=== PATIENT | male | born 1940 | race Caucasian/White ===

== ENCOUNTER → 2016-04-19 | Outpatient (CLI) | payer OTHER ==
--- NOTE | 2016-04-19 08:23 | KCIC ---
PROCEDURE Orbit radiographs HISTORY Pre MRI screening, history of metal to eyes COMPARISON None FINDINGS Two views of the orbits are submitted. No metallic radiopaque foreign body is identified in the region of the orbits. IMPRESSION 1. There is no metallic foreign body in the region of the orbits. Electronically signed by: Haile Ramirez MD (Apr 19, 2016 08:21:47)
--- NOTE | 2016-04-19 08:37 | KCIC ---
PROCEDURE MRI lumbar spine without contrast. HISTORY Arthritis of the lumbar spine, right lower extremity pain, chronic back pain TECHNIQUE Multiplanar, multi sequential non contrast MR imaging was performed of the lumbar spine. COMPARISON None FINDINGS Vertebral body stature is maintained. There is grade 1 approaching grade 2 anterior spondylolisthesis at L5-S1 on the order of 11 millimeters. There is bilateral L5 spondylolysis. There is fairly advanced degenerative disc disease L5-S1, mild to moderate degenerative disc disease L3-4 and L4-5, and mild disc desiccation L2-3. There are posterior annular tears L2-3 to L5-S1. Conus terminates normally at L1. There is edema of the right L4 and L5 pedicles with extent to the facet articular processes. There is very mild lumbar levoscoliosis. Barely included, there is a large focus of T1 and T2 hyperintense STIR signal of the visualized right iliac bone, hemangioma favored. Not fully included, there is likely slightly dilated infrarenal abdominal aorta on the order of 3 centimeters. L1-L2: Spinal canal and neural foramina are adequate. L2-3: There is negligible disc osteophyte complex and bulge. There is minimal narrowing of the left neural foramen, right neural foramen adequate. Spinal canal is adequate. L3-4: There is mild buckling of the ligamentum flavum and facet hypertrophic change. There is minimal disc osteophyte complex and broad posterior bulge. There is minimal narrowing of the far lateral recesses bilaterally greater on the right. There is mild inferior neural foramina compromise bilaterally. L4-5: There is moderate facet hypertrophic change. There is negligible bulge. Spinal canal is adequate. There is mild to moderate neural foramina compromise bilaterally somewhat greater on the right. L5-S1: There is fairly severe facet hypertrophic change. There is partial uncovering of the posterior aspect of the disc due to spondylolisthesis. Spinal canal is adequate. There is moderate to severe left greater than right neural foramina compromise bilaterally. IMPRESSION 1. There is grade 1, approaching grade 2 anterior spondylolisthesis at L5-S1 due to bilateral L5 spondylolysis. 2. There is bilateral L5-S1 neural foramina compromise, to a lesser degree bilaterally at L4-5. 3. There is no significant lumbar spinal stenosis, mild narrowing of the far lateral recesses bilaterally at L3-4. 4. There is advanced degenerative disc disease L5-S1, to a lesser degree at L4-5 and L3-4. 5. There is edema of the right L4 and L5 pedicles with extent to the facet articular processes. Findings are more likely to be reactive/degenerative in etiology. 6. Not fully included, there is likely slightly dilated infrarenal abdominal aorta on the order of 3 centimeters. Electronically signed by: Haile Ramirez MD (Apr 19, 2016 08:35:12)
== END | disposition home or self-care (01) ==
LOC: KCIC MRI 07:43
PROVIDERS: ATTEND Nurse Practitioner Gerontology
DX: M13.88 Other specified arthritis, other site (principal); M79.604 Pain in right leg
CPT/HCPCS: 70030; 72148

== ENCOUNTER → 2016-05-09 | Outpatient (CLI) | payer OTHER ==
[~2016-05-09] MED LIST: ALLO300T PO; ASPI-482 PO; ATOR40TA59 PO; CALC-77 PO; LOSA50TA6 PO; LUTE20CA2 PO; METF10002 PO; MULT1TAB52 PO; OMEG1CAP6 PO
--- NOTE | 2016-05-09 17:15 | PAIN ---
DATE OF SERVICE: 05/09/2016 INITIAL CONSULTATION FOR PAIN CLINIC CHIEF COMPLAINT: Low back and right lower extremity pain. HISTORY OF PRESENT ILLNESS: This is a 76-year-old male who presents with history of pain in the low back and right leg for about 2 years, had a hip replaced about 2-1/2 years ago and was having some pain in the back before that as well, but during the rehabilitation period was having some pain in the low back across the low back into the right leg and into the anterior thigh, medial lower leg and lateral lower leg as well as the posterior hip and the back. The patient reports that he did better after the surgery, but then the pain began to return now for the past year or so. It has been much worse over the past several months. The patient reports it is constant, aching pain, it is throbbing, radiating to the right leg with aching quality as well in to the low back radiating into the anterior lateral and medial thigh, medial lower leg and lateral posterior lower leg to the ankle with some significant fatigability in the right leg with walking and standing. The patient reports left leg feels normal and the right leg does not keep up with it. The patient reports it awakens him from sleep at least once or twice at night with pain radiating down his right leg. Does not affect his bowel or bladder control, but does affect his ability to walk, but he is not using any assistive devices. The patient has had physical therapy as recently as 01/2016. Also, counseling, chiropractic treatment, which is ongoing and exercising, which is ongoing, he is still doing the stretches and strengthening exercises both his chiropractor and physical therapist have given him and he does these daily. The patient is trying to walk as much as he can as well. He generally enjoys this, but it has been limiting him significantly. The patient reports his disability rating from 0 to 10, 10 being the worst, it is 7 with family and home responsibilities, 8 with recreation, 4 with social activity, 5 with occupation and sexual behavior, 3 with self care and 6 with life support activities especially sleeping. The patient has been taking ibuprofen, which helps about 10-20% but that is all. The patient did have MRI scan of the lumbar spine dated 04/19/2016, showing significant L5-S1 anterior spondylolisthesis and spondylosis, bilateral L5-S1 neural foraminal compromise, lesser degree at L4-L5. There is advanced degenerative disk disease at L5-S1 and to lesser degree at L4-L5 and L3-L4, edema of the right L4 and L5 pedicles ____ process. PAST MEDICAL HISTORY: Significant for arthritis, diabetes type 2, hearing loss, hypertension, hypercholesterolemia. PREVIOUS SURGERY: Include right total hip replacement in December 2013, left ankle fracture in the past, detached retina on the right in the past and right cataract extraction with lens replacement. CURRENT MEDICATIONS: Include fish oil, calcium, Lutein, multivitamins, daily baby aspirin, metformin, atorvastatin, allopurinol, and losartan. ALLERGIES: THE PATIENT IS ALLERGIC TO AMOXICILLIN. FAMILY HISTORY: Significant for diabetes, also heart disease, emphysema, aneurysms. SOCIAL HISTORY: The patient drinks 1 alcoholic drink about 3 times a month on average, does not smoke. He is , lives with his spouse and lives locally in [place], [place]. 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 REVIEW OF SYSTEMS: The patient's review of systems is positive for those items mentioned in history of present illness. All systems reviewed and otherwise negative. It is complete, full and well documented on the patient's chart. PHYSICAL EXAMINATION: VITAL SIGNS: Today, the patient's blood pressure 147/96, pulse 91, respirations 16, temperature is 98.2 degrees Fahrenheit, height is 5 feet 11 and half inches, weight is 207 pounds. GENERAL: The patient is awake, alert, oriented, appropriate, very pleasant demeanor. HEENT: Head shows normocephalic, atraumatic. Extraocular movements are intact, symmetrical. Oral cavity, mucous membranes are moist and pink. Dentition is intact. NECK: Shows anterior throat supple without palpable lymphadenopathy noted. Swallow reflex is symmetrical. CHEST: Shows normal on inspection. Breath sounds clear to auscultation bilaterally. HEART: Shows S1 and S2 clear. No murmurs auscultated. ABDOMEN: Soft, nontender, nondistended. No palpable organomegaly noted. No rebound or guarding demonstrated. BACK: Shows spine grossly midline. Normal appearing thoracic kyphosis and lumbar lordotic curvature. No previous bruises, lesions, rashes or scars are noted. The patient's lumbar paraspinous musculature is firm throughout the upper, middle and lower distribution with some moderate tenderness in the low lumbar distribution, more on the right than the left with palpation, but without radiation or trigger points. The patient shows good rotation and motion of the lumbar spine, both laterally as well as extension and flexion without difficulty. No tenderness over the sacrum and sacroiliac regions over the spinous processes with palpation. LOWER EXTREMITIES: Showed deep tendon reflexes at 2+ in the patellar, 1+ tendo calcaneus tendons. Motor exam is strong with 5/5 dorsiflexion, extension, quadriceps and hamstring flexion. The patient's straight leg raise is mildly positive on the right at about 40-45 degrees with pain radiating into the lateral and medial thigh as well as the posterior lower leg. This is decreased with knee flexion. Left side is negative. Gaenslen's and Berny's maneuvers are negative bilaterally. Peripheral pulses are 2+ in the posterior tibial distribution bilaterally with no edema noted bilaterally. The patient is able to stand, stand on his toes without significant difficulty or loss of balance, walks with a slight limping gait, appears to favor the right lower extremity, even on a short walk in the office, but not using any assistive devices, canes or walkers. IMPRESSION: 1. This is a 76-year-old male with approximate 2 year history of increasing low back pain and now radicular pain in the right lower extremity as described significantly over the past few months despite physical therapy and chiropractic treatments and daily exercise. 2. Hypertension. 3. Arthritis. PLAN: Options were discussed with the patient including conservative medical management, physical therapy continuation and interventional technique. He would like to pursue interventional techniques. We discussed a lumbar epidural steroid injection using description as well as anatomical model to describe the procedure. We will wait for preauthorization from patient's insurance provider by his wish and proceed at that time. In the meantime, we will try Medrol Dosepak. The patient was given instruction as well as side effects to be aware with medication. Also discussed the patient's blood pressure and he will follow up with his primary care physician regarding this as well. He may have just been nervous today, but we will nonetheless recommend he follows up for this also. The patient will return to clinic in approximately 1 week. We will plan on lumbar epidural steroid injection at that time. KATERIN N. RAMOS, MD DR: ADAM/duke JOB#: [id number] / [id number]
== END | disposition home or self-care (01) ==
LOC: PNCL 07:42
PROVIDERS: ATTEND Anesthesiology
DX: M54.5 Low back pain (principal); M79.604 Pain in right leg
CPT/HCPCS: G0463

== ENCOUNTER → 2016-05-23 | Outpatient (CLI) | payer OTHER ==
[~2016-05-23] MED LIST changes: +IOHEXOL 180 MG/ML 10 ML VIAL. ONE; +methylPREDNISolone ACETATE 40 MG/ML VIAL. ONE; +methylPREDNISolone ACETATE 80 MG/ML VIAL. ONE
--- NOTE | 2016-05-23 09:46 | PN ---
DATE: 05/23/2016 PROGRESS NOTE FOR PAIN CLINIC DIAGNOSES: Lumbar radiculopathy with lumbar degenerative disk disease. HISTORY OF PRESENT ILLNESS: The patient is a 76-year-old male who returns for followup status post initial evaluation and placement for lumbar epidural steroid injection. The patient returns now with . The patient is still with significant pain in the low back and the right lower extremity as it was previously. The patient reports anywhere from 3 to 8 on a scale of 10, worse with activity, standing and walking. The patient did try Medrol Dosepak, which helped for several days, but the pain came back once it was finished. The patient reports now it is aching, radiating, alternating with dull and sharp pains. The patient has been off of his fish oil now for about 1 week as well as his baby aspirin. The patient reports no new motor or sensory deficits, no new bowel or bladder incontinence or other complaints. PHYSICAL EXAMINATION: VITAL SIGNS: The patient's blood pressure is 128/92, pulse 90, respirations are 20, temperature 97.9 degrees Fahrenheit. Height 6 feet, weight is 206 pounds. GENERAL: The patient is awake, alert, oriented, appropriate, has a very pleasant demeanor. HEENT: Head shows normocephalic, atraumatic. Extraocular movements are intact and symmetrical. The patient wears eye glasses. Oral cavity has mucous membranes moist and pink. Dentition is intact. NECK: Shows anterior throat supple without palpable lymphadenopathy noted. CHEST: Shows normal on inspection. Breath sounds are clear to auscultation bilaterally. HEART: Shows S1 and S2 clear. ABDOMEN: Soft, nontender, nondistended. No palpable organomegaly is noted. No rebound or guarding demonstrated. BACK: Shows spine grossly in the midline. Lumbar paraspinous musculature shows symmetrical in appearance with palpation. She has some [id number] tenderness in the lower lumbar distribution of the paraspinous muscles bilaterally without significant atrophy, hypertrophy or asymmetry. The patient shows good rotational motion of the lumbar spine, both laterally as well as extension and flexion without significant pain reported. EXTREMITIES: Lower extremities show deep tendon reflexes 2+, the patellar tendons 1+, tendo calcaneus tendons are equal. Motor exam is strong with 5/5 dorsiflexion, extension, quadriceps and hamstring flexion. Options were discussed with the patient and the patient's old chart was reviewed and his current medication regimen updated. Current review of systems updated today as well. We will proceed with a lumbar epidural steroid injection today with fluoroscopic guidance. Risks were again discussed including, but not limited to bleeding, infection, possibility of epidural hematoma, subsequent neurologic compromise, dural puncture, headache, spinal cord and/or nerve damage, side effects of steroid medication and poor results regarding pain control. The patient understands and wishes to proceed. The patient will return to clinic in approximately 2 weeks for followup. He was counseled on return appointment, activity level and side effects to be aware of. DIAGNOSIS: Lumbar radiculopathy with lumbar degenerative disk disease. PROCEDURE: Lumbar epidural steroid injection in translaminar approach at L4-L5 level using C-arm fluoroscopic guidance under sterile prep and drape and using local anesthetic. Medications injected are 120 mg Depo-Medrol plus 10 mL of preservative-free normal saline and 2 mL of Isovue for contrast. CONDITION AT DISCHARGE: Stable. The patient tolerated the procedure well, had no complications. KATERIN RAMOS MD DR: ADAM/duke JOB#: [id number] / [id number]
== END | disposition home or self-care (01) ==
LOC: PNCL 07:48
PROVIDERS: ATTEND Anesthesiology
DX: M51.16 Intervertebral disc disorders with radiculopathy, lumbar region (principal)
CPT/HCPCS: 62323; J1030; J1040

== ENCOUNTER → 2016-06-07 | Outpatient (CLI) | payer OTHER ==
[~2016-06-07] MED LIST changes: -IOHEXOL 180 MG/ML 10 ML VIAL. ONE; +METF-620 PO; -METF10002 PO; -methylPREDNISolone ACETATE 40 MG/ML VIAL. ONE; -methylPREDNISolone ACETATE 80 MG/ML VIAL. ONE
--- NOTE | 2016-06-07 23:57 | PAIN ---
DATE OF SERVICE: 06/07/2016 PROGRESS NOTE FOR PAIN CLINIC DIAGNOSES: Lumbar radiculopathy with lumbar degenerative disk disease. HISTORY OF PRESENT ILLNESS: The patient is a 76-year-old male, who returns for followup status post lumbar epidural steroid injection x 1. The patient reports about 60%-70% improvement in his low back and right lower extremity, leg significantly improved about 80% and back about 60%-70% improvement. The patient reports he did very well until about 2 days ago. The pain began to return in his low back and right leg, somewhat into the right lateral and anterior thigh, right posterior lower leg medially as well as across the low back, more on the right side than the left. The patient reports it anywhere from 2 to 7 on a scale of 10, 7 worse with increased walking and standing as an aching pain is radiating into the right leg and becoming more constant over the last 2 days or so. The patient reports that before that was doing very well, was very pleased with the progress increasing his activities of daily living, sleeping much better at night. Over the past 2 days, he has had wake up a couple times during the night reposition because the pain, otherwise doing well. No new bowel or bladder incontinence, no new motor or sensory deficits or other complaints, is quite pleased with that progress, again the patient's pain beginning to return, again radiating to the right leg as it was previously, but not nearly to baseline. PHYSICAL EXAMINATION: VITAL SIGNS: Today, the patient's blood pressure is 124/84, pulse 77, respirations 18, temperature 98.2 degrees Fahrenheit and weight is 206 pounds. GENERAL: The patient is awake, alert, oriented, appropriate, very pleasant demeanor. HEENT: Head shows normocephalic, atraumatic. Extraocular movements are intact and symmetrical. Oral cavity: Mucous membranes moist and pink. Dentition is intact. NECK: Shows anterior throat supple without palpable lymphadenopathy noted. Swallow reflex is symmetrical. CHEST: Shows normal on inspection. Breath sounds clear to auscultation bilaterally. HEART: Shows S1 and S2 clear. No murmurs auscultated. ABDOMEN: Soft, nontender, nondistended. No palpable organomegaly is noted. BACK: Shows spine grossly midline. Lumbar paraspinous muscle shows some mild tenderness with palpation, but only diffusely with deep palpation bilaterally in the lower lumbar distribution. No asymmetry, no atrophy, hypertrophy, no trigger points, no difficulty with tenderness over the sacrum or the sacroiliac regions or the spinous processes. The patient shows good rotation and motion both laterally as well as extension and flexion of lumbar spine without significant difficulty or pain reported. LOWER EXTREMITIES: Show deep tendon reflexes at 2+ in the patellar tendons. Motor exam is strong with 5/5 dorsiflexion, extension, quadriceps and hamstring flexion and symmetrical. Options were discussed with the patient and the patient's old chart was reviewed as his current medication regimen updated. Current review of systems updated today as well. We will preauthorize the patient for additional lumbar epidural steroid injections did very well after the first injection, but the pain returning now is noted in the right lower extremity in a radicular pattern. The patient continues to walk encouraged him to maintain his activities ____ and still doing some stretching exercises on his own in the mornings, which he continues to do, also will have the patient return once preauthorization is obtained and plan on second lumbar epidural steroid injection at that time. KATERIN RAMOS MD DR: ADAM/duke JOB#: [id number] / [id number]
== END | disposition home or self-care (01) ==
LOC: PNCL 07:28
PROVIDERS: ATTEND Anesthesiology
DX: M51.16 Intervertebral disc disorders with radiculopathy, lumbar region (principal)
CPT/HCPCS: G0463

== ENCOUNTER → 2016-06-21 | Outpatient (CLI) | payer OTHER ==
[~2016-06-21] MED LIST changes: +IOHEXOL 180 MG/ML 10 ML VIAL. ONE; +methylPREDNISolone ACETATE 40 MG/ML VIAL. ONE; +methylPREDNISolone ACETATE 80 MG/ML VIAL. ONE
--- NOTE | 2016-06-21 13:54 | PAIN ---
DATE OF SERVICE: 06/21/2016 PROGRESS NOTE FOR PAIN CLINIC DIAGNOSES: Lumbar radiculopathy with lumbar degenerative disk disease as well. HISTORY OF PRESENT ILLNESS: This is a 76-year-old male, who returns for followup status post lumbar epidural steroid injection x 1. The patient reports only about initially 78% improvement for the first week or two, then about 60% improvement after that. The patient reports that his weaning and his pain is getting back to near baseline ____ has been about a week and half since that last visit. The patient reports still significant pain in the low back, right lower extremity, mostly in the right lateral and anterior thigh, lateral and medial lower leg and posterior lower leg. The patient reports worse with activity, standing, walking, changing positions, but no loss of motor function. No bowel or bladder incontinence or other complaints. PHYSICAL EXAMINATION: VITAL SIGNS: Today, the patient's blood pressure is 134/89, pulse 83, respirations are 18, temperature is 98.7 degrees Fahrenheit, weight is 201 pounds. GENERAL: The patient is awake, alert, oriented, appropriate, very pleasant demeanor. The patient reports the rates of his pain is a 3 on a scale of 10 currently. HEENT: Head shows normocephalic, atraumatic. Extraocular movements are intact, symmetrical. Oral cavity, mucous membranes are moist and pink. Dentition is intact. NECK: Shows anterior throat supple without palpable lymphadenopathy noted. Swallow reflex is symmetrical. CHEST: Shows normal on inspection. Breath sounds are clear to auscultation bilaterally. HEART: Shows S1 and S2 clear. ABDOMEN: Soft, nontender, nondistended. No palpable organomegaly. No rebound or guarding demonstrated. BACK: Shows spine grossly midline, slight flattening of lumbar lordotic curvature. Lumbar paraspinous musculature shows symmetrical with inspection. No atrophy, hypertrophy. No tenderness over the sacrum or sacroiliac regions the spinous processes. EXTREMITIES: The patient's lower extremities showed deep tendon reflexes at 2+ in the patellar tendons, 1+ tendo calcaneus tendons. Motor exam is strong with 5/5 dorsiflexion, extension, quadriceps and hamstring flexion and are symmetrical. Options were discussed with the patient at this time, the patient's old chart was reviewed as his current medication regimen and review of systems updated as well as medication list updated. We will plan on second lumbar epidural steroid injection today with fluoroscopic guidance. Risks were then discussed including, but not limited to bleeding, infection, possibility of epidural hematoma, subsequent neurologic compromise, dural punctures, headaches, spinal cord and/or nerve damage, side effects of steroid medication and poor results regarding pain control. The patient understands and wishes to proceed. The patient will return to the clinic in approximately 2 weeks for followup. He was counseled on return appointment, activity level and side effects to be aware of. DIAGNOSES: Lumbar radiculopathy with lumbar degenerative disk disease. PROCEDURES: Lumbar epidural steroid injection in translaminar approach L4-L5 level using C-arm fluoroscopic guidance under sterile prep and drape using local anesthetic. MEDICATIONS INJECTED: Depo-Medrol 120 mg plus 10 mL of preservative-free normal saline and 2 mL Isovue for contrast. CONDITION AT DISCHARGE: Stable. The patient tolerated procedure well, had no complications. KATERIN RAMOS MD DR: ADAM/duke JOB#: [id number] / [id number]
== END | disposition home or self-care (01) ==
LOC: PNCL 07:23
PROVIDERS: ATTEND Anesthesiology
DX: M51.16 Intervertebral disc disorders with radiculopathy, lumbar region (principal)
CPT/HCPCS: 62323; J1030; J1040

== ENCOUNTER → 2016-07-12 | Outpatient (CLI) | payer OTHER ==
[~2016-07-12] MED LIST changes: -IOHEXOL 180 MG/ML 10 ML VIAL. ONE; -LUTE20CA2 PO; +LUTE20CA4 PO; -methylPREDNISolone ACETATE 40 MG/ML VIAL. ONE; -methylPREDNISolone ACETATE 80 MG/ML VIAL. ONE
--- NOTE | 2016-07-12 08:50 | PAIN ---
DATE OF SERVICE: 07/12/2016 PROGRESS NOTE FOR PAIN CLINIC DIAGNOSES: Lumbar radiculopathy with lumbar degenerative disk disease. HISTORY OF PRESENT ILLNESS: The patient is a 76-year-old male who returns for followup status post lumbar epidural steroid injection x 2, last injection 06/21/2016. The patient reports he did very well until about 2 days ago. For the past 3 weeks he had significant decrease in pain, about 70% improvement, and his right leg with near 100% improved for a period of time, but now is beginning to return with some pain radiating into the right anterior lateral thigh, lateral posterior thigh, into the medial lower leg to the ankle on the right side, also in the right low back. The patient reports it is aching, radiating, becoming more noticeable and more constant, anywhere from a 5 to a 7 on a scale 10. It is currently a 5 today, worse with standing and walking, better with sitting or lying down. The patient is sleeping well at night. Reports it awakens him occasionally, but only over the last 1 or 2 days. Otherwise he is doing quite well. The patient reports that riding in a car is comfortable. It is mostly when he is standing, walking, or changing positions. The patient reports no new motor or sensory deficits. No new bowel or bladder incontinence or other complaints, doing very well until the last 1-2 days. The pain is beginning to return, but again about 70% improvement overall. PHYSICAL EXAMINATION: VITAL SIGNS: Today, the patient's blood pressure is 134/85, pulse 80, respirations 18, temperature 98.5 degrees Fahrenheit, weight is 203 pounds. GENERAL: The patient is awake, alert, oriented, appropriate, very pleasant demeanor. HEENT: Head shows normocephalic, atraumatic. Extraocular movements are intact and symmetrical. Oral cavity shows mucous membranes moist and pink. Dentition is intact. NECK: Shows anterior throat supple without palpable lymphadenopathy noted. Swallow reflex is symmetrical. Neck shows full rotational motion of the cervical spine without difficulty. CHEST: Shows normal on inspection. Breath sounds are clear to auscultation bilaterally. HEART: Shows S1 and S2 clear. ABDOMEN: Soft, nontender, nondistended. No palpable organomegaly is noted. BACK: Shows spine grossly midline. Normal appearing thoracic kyphosis and lumbar lordotic curvature. Lumbar paraspinous muscle shows symmetrical on inspection. On palpation shows some moderate tenderness with palpation throughout the middle and lower distribution of the paraspinous muscles, but only diffusely, and more on the right than the left, but is symmetric and without radiation. No tenderness over the sacrum or sacroiliac regions. The patient shows good rotation and motion of the lumbar spine, both laterally as well as extension and flexion without difficulty or pain reported. Lower extremities show deep tendon reflexes at 2+ in the patellar, 1+ tendo calcaneus tendons are equal. Motor exam is strong with dorsiflexion, extension, quadriceps and hamstring flexion, rated at 5/5 and equal and symmetrical bilaterally as well. The patient does have a slight positive straight leg raise on the right at about 45 degrees, which is relieved with knee flexion and negative on the left. Gaenslen's and Berny's maneuvers are negative bilaterally. PLAN: Options were discussed with the patient. The patient's old chart was reviewed as his current medication regimen updated. Current review of systems updated today as well and we will preauthorize the patient for a third lumbar epidural steroid injection. He has done very well with this, but the radicular pain is now returning to a moderate extent. The patient will return to the clinic once approval is obtained and we will plan on third lumbar epidural steroid injection at that time. KATERIN RAMOS MD DR: ADAM/duke JOB#: [id number] / [id number]
== END | disposition home or self-care (01) ==
LOC: PNCL 09:04
PROVIDERS: ATTEND Anesthesiology
DX: M51.16 Intervertebral disc disorders with radiculopathy, lumbar region (principal)
CPT/HCPCS: G0463

== ENCOUNTER → 2016-07-26 | Outpatient (CLI) | payer OTHER ==
[~2016-07-26] MED LIST changes: +IOHEXOL 180 MG/ML 10 ML VIAL. ONE; +LOSA100T6 PO; +methylPREDNISolone ACETATE 40 MG/ML VIAL. ONE; +methylPREDNISolone ACETATE 80 MG/ML VIAL. ONE
--- NOTE | 2016-07-27 00:17 | PAIN ---
DATE OF SERVICE: 07/26/2016 DIAGNOSES: Lumbar radiculopathy with lumbar degenerative disk disease. HISTORY OF PRESENT ILLNESS: The patient is a 76-year-old male who returns for followup status post evaluation and status post lumbar epidural steroid injections x 2 with about 70% improvement. The patient reports still some pain in the right low back, but the right leg is doing much better. The patient reports still radiating pain is constant and aching, but is 5 on a scale of 10 at its worst and it is about 3 on a scale 10 today. The patient reports no new motor or sensory deficits, no new bowel or bladder incontinence or other complaints. The patient has been approved for additional injection and would like to proceed with that today. The patient reports he is sleeping better at night, has been increasing his activity with good tolerance, still some pain mainly in the right low back more than the leg. PHYSICAL EXAMINATION: VITAL SIGNS: Today, the patient's blood pressure is 121/81, pulse 75, respirations 18, temperature 98.2 degrees Fahrenheit. Weight is 208 pounds. GENERAL: The patient is awake, alert, oriented, appropriate, very pleasant demeanor. HEENT: Head shows normocephalic, atraumatic. Extraocular movements are intact, symmetrical. The patient wears eyeglasses. Oral cavity, mucous membranes are moist and pink. Dentition is intact. NECK: Shows anterior throat supple without palpable lymphadenopathy noted. Swallow reflex is symmetrical. CHEST: Shows normal on inspection. Breath sounds clear to auscultation bilaterally. HEART: Shows S1 and S2 clear. ABDOMEN: Soft, nontender, nondistended. No palpable organomegaly, no rebound or guarding demonstrated. BACK: Shows spine grossly in the midline. Lumbar paraspinous musculature shows symmetrical on inspection, with palpation shows moderate tenderness, more on the right than the left in the inferior aspect of the paraspinous musculature, but only diffusely and only to a moderate extent. There is no tenderness over the sacroiliac regions over the sacrum. The patient shows good rotational motion both laterally as well as extension and flexion of lumbar spine. EXTREMITIES: Lower extremities show deep tendon reflexes 2+ in the patellar, 1+ tendo-calcaneus tendons are equal. Motor exam is strong with 5/5 dorsiflexion and extension. Options were discussed with the patient and the patient's old chart was reviewed as his current medication regimen updated. Current review of systems updated today as well. We will proceed with a third lumbar epidural steroid injection today with fluoroscopic guidance. Risks were again discussed including, but not limited to bleeding, infection, possibility of epidural hematoma, subsequent neurologic compromise, dural puncture, headaches, spinal cord and/or nerve damage, side effects of steroid medication and poor results regarding pain control. The patient understands and wishes to proceed. The patient will return to clinic in approximately 2 weeks for followup. He was counseled as to return appointment, activity level and side effects to be aware of. DIAGNOSES: Lumbar radiculopathy with lumbar degenerative disk disease. PROCEDURE: Lumbar epidural steroid injection in translaminar approach at the L4-L5 level using the C-arm fluoroscopic guidance under sterile prep and drape using local anesthetic. MEDICATION INJECTED: 120 mg Depo-Medrol plus 10 mL preservative-free normal saline and 2 mL Isovue for contrast. CONDITION ON DISCHARGE: Is stable. The patient tolerated the procedure well and had no complications. KATERIN RAMOS MD DR: ADAM/duke JOB#: [id number] / [id number]
== END | disposition home or self-care (01) ==
LOC: PNCL 07:24
PROVIDERS: ATTEND Anesthesiology
DX: M51.16 Intervertebral disc disorders with radiculopathy, lumbar region (principal); Z88.1 Allergy status to other antibiotic agents
CPT/HCPCS: 62323; J1030; J1040

== ENCOUNTER → 2016-08-16 | Outpatient (CLI) | payer OTHER ==
[~2016-08-16] MED LIST changes: -IOHEXOL 180 MG/ML 10 ML VIAL. ONE; -methylPREDNISolone ACETATE 40 MG/ML VIAL. ONE; -methylPREDNISolone ACETATE 80 MG/ML VIAL. ONE
== END | disposition home or self-care (01) ==
LOC: PNCL 07:25
PROVIDERS: ATTEND Anesthesiology
DX: M51.16 Intervertebral disc disorders with radiculopathy, lumbar region (principal)
CPT/HCPCS: 99212

== ENCOUNTER → 2016-08-30 | Outpatient (CLI) | payer OTHER ==
[~2016-08-30] MED LIST changes: +BUPIVACAINE MPF 0.25% 10 ML VIAL. ONE; +IOHEXOL 180 MG/ML 10 ML VIAL. ONE; +methylPREDNISolone ACETATE 40 MG/ML VIAL. ONE; +methylPREDNISolone ACETATE 80 MG/ML VIAL. ONE
--- NOTE | 2016-08-30 11:23 | PAIN ---
DATE OF SERVICE: 08/30/2016 PROGRESS NOTE FOR PAIN CLINIC DIAGNOSES: Lumbar radiculopathy with lumbar degenerative disk disease and lumbar spondylosis, both lumbar and lumbosacral. HISTORY OF PRESENT ILLNESS: The patient is a 76-year-old male who returns for followup status post after a lumbar epidural steroid injection where his right leg pain had cleared up completely, still having some pain in the low back on the right side. The patient reports it is unchanged, worse with activity, increased pain with activity, walking, standing, bending, especially with extension and rotation to the right side, it is better with sitting. It does awaken him from sleep occasionally when he lies on his right side as well. The patient reports no new motor or sensory deficits, rates his pain as a 5-7 on a scale of 10, it is currently a 6. The patient reports it is radiating, constant aching in the right side, radiating to the right hip occasionally, but mainly in his low back. The patient reports no new motor or sensory deficits, no new bowel or bladder incontinence or other complaints. PHYSICAL EXAMINATION: VITAL SIGNS: Today, the patient's blood pressure 130/85, pulse 81, respirations 18, temperature 98.4 degrees Fahrenheit. Weight is 204 pounds. GENERAL: The patient is awake, alert, oriented, appropriate, very pleasant demeanor. HEENT: Shows normocephalic, atraumatic. The patient wears eyeglasses. Extraocular movements are intact and symmetrical. Oral cavity, mucous membranes moist and pink. NECK: Shows anterior throat supple. CHEST: Shows normal on inspection. Breath sounds are clear to auscultation bilaterally. HEART: Shows S1 and S2 clear. ABDOMEN: Soft, nontender, nondistended. No palpable organomegaly. No rebound or guarding demonstrated. BACK: Shows spine grossly midline. Lumbar paraspinous musculature shows some mild to moderate tenderness with palpation, but without radiation. The patient has good rotational motion of the lumbar spine, but with pain with extension on the right side as well as right lateral rotation, but not to the left. EXTREMITIES: Lower extremities show deep tendon reflexes at 1+ in the patellar and tendo calcaneus tendons. Motor exam is strong with 5/5 dorsiflexion and extension as well as quadriceps and hamstring flexion and equal bilaterally. Options were discussed with the patient and the patient's old chart was reviewed as his current medication regimen and updated. Current review of systems updated today as well. We will proceed with the right-sided L4-L5 and L5-S1 facet joint injections with fluoroscopic guidance. Risks were again discussed including, but not limited to bleeding, infection, possibility of epidural hematoma, subsequent neurological compromise, dural puncture, headaches, spinal cord and/or nerve damage, side effects of steroid medication and poor results regarding pain control. The patient understands and wishes to proceed. The patient will return to clinic in approximately 2 weeks for followup, was counseled on return appointment, activity level and side effects to be aware of. DIAGNOSIS: Lumbar spondylosis and lumbosacral spondylosis. PROCEDURE: Right-sided L4-L5 and L5-S1 facet joint injections using C-arm fluoroscopic guidance under sterile prep and drape using local anesthetic. [employer] MEDICATIONS INJECTED: A total of 120 mg of Depo-Medrol plus 2 mL of Isovue for contrast and 2 mL of 0.25% bupivacaine after negative aspiration each level. CONDITION AT DISCHARGE: Stable. The patient tolerated the procedure well, had no complications. [employer] KATERIN RAMOS MD DR: ADAM/duke JOB#: [id number] / [id number]
== END | disposition home or self-care (01) ==
LOC: PNCL 07:58
PROVIDERS: ATTEND Anesthesiology
DX: M51.17 Intervertebral disc disorders with radiculopathy, lumbosacral region (principal); Z88.1 Allergy status to other antibiotic agents; M47.27 Other spondylosis with radiculopathy, lumbosacral region
CPT/HCPCS: 64493; 64494; J1030; J1040; J3490

== ENCOUNTER → 2016-09-13 | Outpatient (CLI) | payer OTHER ==
[~2016-09-13] MED LIST changes: -BUPIVACAINE MPF 0.25% 10 ML VIAL. ONE; -IOHEXOL 180 MG/ML 10 ML VIAL. ONE; -methylPREDNISolone ACETATE 40 MG/ML VIAL. ONE; -methylPREDNISolone ACETATE 80 MG/ML VIAL. ONE
--- NOTE | 2016-09-13 10:03 | PAIN ---
DATE OF SERVICE: 09/13/2016 PROGRESS NOTE FOR PAIN CLINIC DIAGNOSIS: Lumbar spondylosis, both lumbar and lumbosacral. HISTORY OF PRESENT ILLNESS: The patient is a 76-year-old male who returns for followup status post recent lumbar facet injections on 08/30/2016. The patient reports about 80% improvement for the first 4 days following the injection now about 50% improvement on the right side. The patient was very impressed, he was increasing his activity with greater ease and comfort, able to walk straight, felt much better even by later that day after the injections. The patient reports his pain was a 1 on a scale of 10, is now 3, can be as high as 6 with standing, walking and bending, especially with extension and rotation of the lumbar spine to the right. Pain remains right-sided without any radiation into the lower extremities. It is in the right side low back exclusively. The patient reports again worse with extension, better with lying down or sitting, leaning forward, but worse with rotation to the right side and extension and rotation to the right side, both causes the pain to be at its worst. The patient reports it does not usually awaken him from sleep, occasionally if he lays on his right side long enough, but generally the repositioning get that to get better at night. No new motor or sensory deficits, no new bowel or bladder incontinence or other complaints. The patient is very encouraged by the way he was walking with greater ease. Reports that his noticed that he was not limping or holding his back for several days after the injection as well. PHYSICAL EXAMINATION: VITAL SIGNS: Today, the patient's blood pressure is 126/83, pulse 78, respirations are 18, temperature is 98.1 degrees Fahrenheit, weight is 201 pounds. GENERAL: The patient is awake, alert, oriented, appropriate, very pleasant demeanor. HEENT: Shows normocephalic, atraumatic. The patient wears eyeglasses. Extraocular movements are intact and symmetrical. Oral cavity: Mucous membranes moist and pink. NECK: Shows anterior throat supple. CHEST: Shows normal on inspection. Breath sounds are clear to auscultation bilaterally. HEART: Shows S1 and S2 clear. No murmurs auscultated. ABDOMEN: Soft, nontender, nondistended. BACK: Shows spine grossly in the midline. Normal-appearing thoracic kyphosis and lumbar lordotic curvature. Lumbar paraspinous muscle shows symmetrical on inspection with palpation. Shows some moderate tenderness diffusely in the low lumbar distribution on the right, much more tender than the left, but with only diffuse tenderness, no radiation of pain, no tenderness over the sacrum or sacroiliac regions. The patient has good rotation and motion of lumbar spine again with pain reported with far right lateral greater than 10 degrees as well as extension greater than 10 degrees on the right side only, again without radiation into the lower extremities. Lower extremities showed deep tendon reflexes 1+ in the patellar and tendo-calcaneus tendons are equal. Motor exam is strong with 5/5 dorsiflexion, extension, quadriceps and hamstring flexion and symmetrical. Peripheral pulses are 1+ posterior tibial bilaterally. No peripheral edema is noted. Options were discussed with the patient and the patient's old chart was reviewed as his current medication regimen updated. Current review of systems updated today as well. We will preauthorize the patient for radiofrequency ablation of the right-sided L4-L5 and L5-S1 levels, median branches. The patient will return to clinic once approval is obtained and was encouraged to maintain his activity as best he can with the pain in the meantime. KATERIN RAMOS MD DR: ADAM/duke JOB#: [id number] / [id number]
== END | disposition home or self-care (01) ==
LOC: PNCL 07:23
PROVIDERS: ATTEND Anesthesiology
DX: M47.896 Other spondylosis, lumbar region (principal); M47.897 Other spondylosis, lumbosacral region
CPT/HCPCS: G0463

== ENCOUNTER → 2016-10-03 | Outpatient (CLI) | payer OTHER ==
[~2016-10-03] MED LIST changes: +BUPIVACAINE MPF 0.25% 10 ML VIAL. ONE; +IOHEXOL 180 MG/ML 10 ML VIAL. ONE; +methylPREDNISolone ACETATE 40 MG/ML VIAL. ONE; +methylPREDNISolone ACETATE 80 MG/ML VIAL. ONE
--- NOTE | 2016-10-03 20:41 | PAIN ---
DATE OF SERVICE: 10/03/2016 DIAGNOSES: Lumbar radiculopathy with lumbar degenerative disk disease, lumbar spondylosis, both lumbar and lumbosacral. HISTORY OF PRESENT ILLNESS: The patient is a 76-year-old male who returns for followup status post right-sided lumbar facet joint injections with about 80% improvement after the last injections felt lasting for about 4-5 days. The patient reports at that time, the pain gradually returned, but not abruptly in the right low back, worse with pain standing, walking, changing positions, extension of the spine, especially better with forward flexion, better with sitting or lying down. It does not awaken her from sleep at night, feels better lying down. He sleeps about 8 hours a night without difficulty. The patient reports that once he is up though, even first thing in the morning, the pain returns fairly quickly in the right side of the low back with weightbearing, standing and walking. The patient reports no significant radiation into the right lower extremity, but has significant pain across the back and focused on the right side. The patient reports it as aching and constant, rates a 5 on a scale of 10 at its worst and 3 on a scale 10 today, averages about 4. The patient reports no new motor or sensory deficits, no new bowel or bladder incontinence. Again, significant improvement about 80% or so after the first injections lasting about 4-5 days and returning slowly. PHYSICAL EXAMINATION: VITAL SIGNS: Today, the patient's blood pressure 129/80, pulse 80, respirations 18, temperature 98.1 degrees Fahrenheit. Height is 5 feet 11 inches, weight is 201 pounds. GENERAL: The patient is awake, alert, oriented, appropriate, very pleasant demeanor. HEENT: Head shows normocephalic, atraumatic. Extraocular movements are intact and symmetrical. Oral cavity: Mucous membranes moist and pink. Dentition is intact. NECK: Shows anterior throat supple without palpable lymphadenopathy noted. Swallow reflex is symmetrical. CHEST: Shows normal on inspection. Breath sounds clear to auscultation. HEART: Shows S1 and S2 clear. No murmurs auscultated. ABDOMEN: Soft, nontender, nondistended. BACK: Shows spine grossly midline. Normal appearing thoracic kyphosis and mild flattening of lumbar lordotic curvature. Lumbar paraspinous muscle shows symmetrical on inspection with palpation, shows some moderate tenderness to palpation bilaterally, but only diffusely and only in the inferior aspect, slightly more on the right than the left in the inferior aspect of the lumbar paraspinous musculature. No radiation demonstrated. The patient shows good rotation and motion of the lumbar spine with pain reported in the right low back with extension, but not with forward flexion. Some pain with right lateral rotation greater than 10 degrees, but not at the left. Lower extremities show deep tendon reflexes 1+ in the patellar and tendocalcaneus tendons. Motor exam is strong with 5/5 dorsiflexion, extension, quadriceps and hamstring flexion. Options were discussed with the patient and the patient's old chart was reviewed as his current medication regimen updated. Current review of systems updated today as well. We will proceed with a repeat right-sided L4-L5 and L5-S1 facet joint injections with fluoroscopic guidance. Risks were again discussed including, but not limited to bleeding, infection, possibility of epidural hematoma, subsequent neurologic compromise, dural puncture, headaches, spinal cord and/or nerve damage, side effects of steroid medication and poor results regarding pain control. The patient understands and wishes to proceed. The patient will return to clinic in approximately 2 weeks for followup. She was counseled to return appointment, activity level and side effects to be aware of. DIAGNOSIS: Lumbar and lumbosacral spondylosis. PROCEDURE: Lumbar L4-L5 and L5-S1 facet joint injections using C-arm fluoroscopic guidance under sterile prep and drape using local anesthetic. MEDICATION INJECTED: A total of 2 mL of 0.25% bupivacaine plus total of 125 mg of Depo-Medrol plus 1 mL of Isovue for contrast. CONDITION AT DISCHARGE: Stable. The patient tolerated the procedure well, had no complications. KATERIN RAMOS MD DR: ADAM/duke JOB#: [id number] / [id number]
== END | disposition home or self-care (01) ==
LOC: PNCL 12:36
PROVIDERS: ATTEND Anesthesiology
DX: M51.16 Intervertebral disc disorders with radiculopathy, lumbar region (principal); M47.26 Other spondylosis with radiculopathy, lumbar region; M96.1 Postlaminectomy syndrome, not elsewhere classified; Z88.1 Allergy status to other antibiotic agents
CPT/HCPCS: 64493; 64494; J1030; J1040; J3490

== ENCOUNTER → 2016-10-17 | Outpatient (CLI) | payer OTHER ==
[~2016-10-17] MED LIST changes: -BUPIVACAINE MPF 0.25% 10 ML VIAL. ONE; -IOHEXOL 180 MG/ML 10 ML VIAL. ONE; -methylPREDNISolone ACETATE 40 MG/ML VIAL. ONE; -methylPREDNISolone ACETATE 80 MG/ML VIAL. ONE
--- NOTE | 2016-10-17 20:18 | PAIN ---
DATE OF SERVICE: 10/17/2016 DIAGNOSIS: Lumbar spondylosis, both lumbar and lumbosacral. HISTORY OF PRESENT ILLNESS: The patient is a 76-year-old male who returns for followup status post second set of lumbar facet joint injections. The patient reports about 85% improvement. His first injection for about 80% improved and repeat injections 85%. For about 4-5 days following the injection, the patient reports he had no pain, was feeling very well, increased his activity with greater ease and comfort, sleeping very well at night, still is not awakening him from sleep. The pain is returning now more on the right side as it was previously. It is radiating, constant pain as aching and dull, worse with standing and walking, worse with extension of the spine, better with forward flexion, sitting or lying down, much worse with walking and standing. No significant radiation to the right lower extremity at this time, just in the back itself and the posterior superior hip, rates a 5 on a scale of 10 at its worst, average about 4, can be as low as a 2 with sitting or lying down. The patient reports it is beginning to increase with time, but without new motor or sensory deficits. The patient reports no new changes. PHYSICAL EXAMINATION: VITAL SIGNS: The patient's blood pressure is 134/81, pulse 78, respirations are 18, temperature is 98.0 degrees Fahrenheit. Height is 6 feet, weight is 206 pounds. GENERAL: The patient is awake, alert, oriented, appropriate, very pleasant demeanor. HEENT: Head shows normocephalic, atraumatic. The patient wears eyeglasses. Extraocular movements are intact and symmetrical. Oral cavity shows mucous membranes moist and pink. Dentition is intact. NECK: Shows anterior throat supple without palpable lymphadenopathy noted. Swallow reflex is symmetrical. CHEST: Shows normal on inspection. Breath sounds clear to auscultation bilaterally. HEART: Shows S1 and S2 clear. ABDOMEN: Obese, soft, nontender, nondistended. No palpable organomegaly. No rebound or guarding demonstrated. BACK: Shows spine grossly midline. The patient's lumbar paraspinous musculature shows some moderate tenderness to palpation, more on the right than the left, but is symmetrical in appearance. The patient has good rotational motion of the lumbar spine, both laterally as well as extension and flexion with some tenderness with extension and right lateral rotation, but better with forward flexion. EXTREMITIES: The patient's lower extremities showed deep tendon reflexes at 1+/4 in the patellar and tendocalcaneus tendons are equal. Motor exam is strong with 5/5 dorsiflexion, extension, quadriceps and hamstring flexion equal bilaterally as well. Options were discussed with the patient. The patient's old chart was reviewed as his current medication regimen updated. Current review of systems updated today as well, and we will preauthorize the patient for a radiofrequency ablation of the right-sided L4-L5 and L5-S1 levels as he did very well with the diagnostic blocks. The patient will return to clinic in approximately 2 weeks. We will plan on radiofrequency ablation, right-sided L4-L5 and L5-S1 at that time. KATERIN RAMOS MD DR: ADAM/duke JOB#: [id number] / [id number]
== END | disposition home or self-care (01) ==
LOC: PNCL 07:47
PROVIDERS: ATTEND Anesthesiology
DX: M47.896 Other spondylosis, lumbar region (principal); M47.897 Other spondylosis, lumbosacral region
CPT/HCPCS: G0463

== ENCOUNTER → 2016-10-31 | Outpatient (CLI) | payer OTHER ==
[~2016-10-31] MED LIST changes: +BUPIVACAINE MPF 0.25% 10 ML VIAL. ONE; +LIDOCAINE 1% PF 2 ML VIAL. ONE; +LIDOCAINE 2% PF Vial for OR 5 ML VIAL. ONE; +methylPREDNISolone ACETATE 40 MG/ML VIAL. ONE; +methylPREDNISolone ACETATE 80 MG/ML VIAL. ONE
--- NOTE | 2016-10-31 18:26 | PAIN ---
DATE OF SERVICE: 10/31/2016 DIAGNOSES: Lumbar degenerative disk disease and lumbosacral spondylosis. HISTORY OF PRESENT ILLNESS: The patient is a 76-year-old male who returns for followup status post right-sided facet joint injections with 80 plus percent improvement in the joints after the injection. The patient reports doing very well. We had preauthorization for radiofrequency ablation today, and he would like to proceed with this. Still reporting of pain in the low back, right side, specifically in the back itself without significant radiation. The patient reports it is a 6 on a scale of 10 currently, a 5 on average and is a 4 at its least. The patient reports it is aching, radiating and constant and sometimes dull and stabbing. The patient reports no new motor or sensory deficits, no new bowel or bladder incontinence or other complaints. Reports it does awake him from sleep occasionally. Repositioning onto his left side generally allows him to get back to sleep. PHYSICAL EXAMINATION: VITAL SIGNS: Today, his blood pressure 140/72, pulse 78, respirations 18, temperature 98.2 degrees Fahrenheit, weight is 205 pounds. GENERAL: The patient is awake, alert, oriented, appropriate, very pleasant demeanor. HEENT: Head shows normocephalic, atraumatic. Extraocular movements are intact and symmetrical. Oral cavity shows mucous membranes moist and pink. Dentition intact. NECK: Shows anterior throat supple. Swallow reflex is symmetrical. CHEST: Shows normal with inspection. Breath sounds are clear to auscultation bilaterally. HEART: Shows S1 and S2 clear. ABDOMEN: Soft, nontender, nondistended. No palpable organomegaly is noted. BACK: Shows spine grossly midline. Lumbar paraspinous muscle shows symmetrical on inspection with palpation. Shows some moderate tenderness, more on the right than the left in the middle and lower distribution of paraspinous muscles, but it is symmetrical without evidence of atrophy, hypertrophy. No trigger points, no radiation of pain. The patient shows good rotational motion and some moderate tenderness with extension on right lateral rotation in the low back past 10 degrees in each direction, but not with forward flexion of 45 degrees for left lateral rotation. Lower extremities showed deep tendon reflexes 1+. The patellar and tendocalcaneus tendons are equal. Motor exam is strong with 5/5 dorsiflexion, extension and equal. Options were discussed with the patient and the patient's old chart was reviewed as his current medication regimen updated. Current review of systems updated today as well. We will proceed with radiofrequency ablation of the right-sided L4-L5 and L5-S1 levels medial branches at the facet joints. Risks were again discussed including, but not limited to bleeding, infection, possibility of epidural hematoma and subsequent neurological compromise, dural punctures, headaches, spinal cord and/or nerve damage, side effects of steroid medications, exposure to fluoroscopy, thermal damage to surrounding structures including potential for motor nerves and paralysis as well as poor results regarding pain control. The patient understands and wishes to proceed. The patient will return to the clinic in approximately 3 weeks for followup. He was counseled on return appointment, activity level and side effects to be aware of. DIAGNOSIS: Lumbar and lumbosacral spondylosis, right sided. PROCEDURE: Right-sided radiofrequency ablation L4-L5 and L5-S1 levels, medial branch facet using a sterile prep and drape under local anesthetic using x-ray, fluoroscopic guidance. MEDICATIONS INJECTED: A total of 3 mL of 0.25% bupivacaine plus a total of 120 mg Depo-Medrol. After radiofrequency ablation was performed, also lidocaine 2% 3 mL injected in each level after motor and sensory testing, but prior to radiofrequency ablation. CONDITION AT DISCHARGE: Stable. The patient tolerated procedure well, had no complications. Please see the radiofrequency ablation flow sheet for levels, impedances, ablation, temperatures and duration. KATERIN RAMOS MD DR: ADAM/duke JOB#: [id number] / [id number]
== END | disposition home or self-care (01) ==
LOC: PNCL 12:56
PROVIDERS: ATTEND Anesthesiology
DX: M47.816 Spondylosis without myelopathy or radiculopathy, lumbar region (principal); Z88.1 Allergy status to other antibiotic agents
CPT/HCPCS: 64635; 64636; J1030; J1040; J3490; J2001

== ENCOUNTER → 2016-11-28 | Outpatient (CLI) | payer OTHER ==
[~2016-11-28] MED LIST changes: -BUPIVACAINE MPF 0.25% 10 ML VIAL. ONE; -LIDOCAINE 1% PF 2 ML VIAL. ONE; -LIDOCAINE 2% PF Vial for OR 5 ML VIAL. ONE; +SITA50TA PO; -methylPREDNISolone ACETATE 40 MG/ML VIAL. ONE; -methylPREDNISolone ACETATE 80 MG/ML VIAL. ONE
--- NOTE | 2016-11-28 14:34 | PAIN ---
DATE OF SERVICE: 11/28/2016 DATE OF SERVICE: 11/28/2016 DIAGNOSES: Lumbar radiculopathy with lumbar degenerative disk disease and lumbar and lumbosacral spondylosis as well. HISTORY OF PRESENT ILLNESS: The patient is a 76-year-old male who returns for followup status post right-sided L4-L5 and L5-S1 facet blocks and recent radiofrequency ablation on 10/31/2016. The patient returns today reporting no significant improvement in pain in his right side. He had significant improvement after the facet joint injections, but after the radiofrequency, he has had no improvement whatsoever. The patient reports it is still aching, sharp, radiating becoming more constant in the right low back and hip radiating to the right lateral thigh and groin. Rates it as a 7 on a scale of 10 at its worst, a 6 on average, and a 4 at its least. The patient reports it is a 5 today. The patient reports no new motor or sensory deficits, no new bowel or bladder incontinence, still significant pain in the right side low back very persistent after radiofrequency. The patient is somewhat disappointed with the results and we are having difficulty trying to explain why it has not improved as he did very well with a diagnostic therapeutic blocks prior to this. The patient reports no other new changes, deficits, no bowel or bladder incontinence or other complaints. PHYSICAL EXAMINATION: VITAL SIGNS: The patient's blood pressure 132/87, pulse 81, respirations 18, temperature 98.2 degrees Fahrenheit, height is 5 feet 11 inches, weight is 212 pounds. GENERAL: The patient is awake, alert, oriented, appropriate, very pleasant demeanor. HEENT: Today, head shows normocephalic, atraumatic. Extraocular movements are intact and symmetrical. Oral cavity shows mucous membranes moist and pink. Dentition is intact. NECK: Shows anterior throat supple without palpable lymphadenopathy noted. Swallow reflex is symmetrical. CHEST: Shows normal on inspection. Breath sounds are clear bilaterally. HEART: Shows S1 and S2 clear. ABDOMEN: Obese, soft, nontender, nondistended. No palpable organomegaly is noted. BACK: Shows spine grossly in midline. Lumbar paraspinous musculature shows symmetrical inspection and on palpation shows some [id number] tenderness on the right side only, low and mid lumbar distribution, but it is symmetrical without trigger points, without radiation. No tenderness over the sacrum or sacroiliac regions. The patient shows good rotational motion with some increased pain with extension as well as right lateral rotation past 10 degrees. No radiation. LOWER EXTREMITIES: Showed deep tendon reflexes 1+ in the patellar and tendo calcaneus tendons. Motor exam is strong with 5/5 dorsiflexion, extension, quadriceps and hamstring flexion and symmetrical. PLAN: Options were discussed with the patient and the patient's old chart was reviewed as his current medication regimen and updated. Current review of systems updated today as well. We discussed several options today, possibility of water therapy, also repeat intra-articular facet joint blocks and neurosurgical consultation. We will get an MRI scan scheduled as he has not had one since April and we will make a referral for a neurosurgical opinion as I would like to see if there is any neurosurgical lesions which have developed since his last MRI with resistance to long lasting relief with intra-articular facet blocks as well as radiofrequency ablation without significant improvement. The patient would like to speak with a surgeon also to see if there is anything available. If not, we will have the patient to participate in water pool therapy as this may be helpful for the pains. The patient as well as he continues to do yoga as well as exercising daily. KATERIN RAMOS MD DR: ADAM/duke JOB#: [id number] / [id number] KAREN Keller DO
== END | disposition home or self-care (01) ==
LOC: PNCL 10:19
PROVIDERS: ATTEND Anesthesiology
DX: M51.16 Intervertebral disc disorders with radiculopathy, lumbar region (principal); M47.27 Other spondylosis with radiculopathy, lumbosacral region
CPT/HCPCS: G0463

== ENCOUNTER → 2017-01-04 | Outpatient (CLI) | payer OTHER ==
[~2017-01-04] MED LIST changes: +IOHEXOL 180 MG/ML 10 ML VIAL. IT ONE; +LIDOCAINE 1% / SOD BICARB 8.4% 20 ML VIAL. IJ ONE
[2017-01-04 08:52] LABS: CREATININE 0.9 mg/dL (0.7-1.3); GFR 82.5
[2017-01-04 10:23] VITALS: BP 123/81
--- NOTE | 2017-01-04 11:05 | RAD ---
Lumbar myelogram, 01/04/2017: History: Back and right leg pain Under local, aseptic conditions and fluoroscopic guidance a lumbar puncture was performed at the mid L2 level utilizing a 25-gauge Manuel spinal needle. Good clear CSF flow was obtained following which 14 cc of Omnipaque 180 was injected into the thecal sac. The spinal needle was then removed and appropriate lumbar imaging performed. 2.4 minutes of fluoroscopy time was utilized. 14 fluoroscopic spot images were recorded. The patient tolerated the procedure well and was sent to CT in good condition. The following findings are delineated on the myelogram: 1. There are 6 lumbar type vertebral bodies in this patient. For purposes of these reports the lowest disc space with known spondylolisthesis will be considered to be L5-S1, for consistency with the previous MR imaging. Utilizing this numbering system there are absent or rudimentary ribs at T12. 2. There is a mild spondylolisthesis at L5-S1. This did not demonstrate significant change with upright flexion or extension. 3. There are moderate anterior extradural defects at L3-4 and L4-5 with mild anterior extradural defects at L5-S1 and L2-3. 4. There is mild central spinal stenosis at the L3-4 level. 5. There is mildly decreased filling of the nerve root sleeves in the lower lumbar region in a symmetric pattern. CT of the lumbar spine-post myelogram, 01/04/2017: Multidetector CT imaging was performed with multiplanar reconstructions produced. The following findings are delineated: 1. At L1-2 and L2-3 there is moderate spurring anteriorly. No significant posterior disc bulge or protrusion is seen. The central spinal canal and neural foramina are well maintained. 2. At L3-4 there is a vacuum disc phenomena with moderate broad-based posterior disc bulging. There is moderate posterior ligamentous thickening related to mild facet joint arthropathy. The thecal sac measures 9-10 mm in AP diameter at the midline in the supine position for the CT study. There is moderate inferior foraminal narrowing bilaterally at this level. 3. At L4-5 there is a vacuum disc phenomena with moderate broad-based posterior disc bulging. There are more extensive degenerative changes involving the facet joints with vacuum phenomena at both facet joints. There is moderate posterior ligamentous thickening. The central spinal canal is not stenotic. There is moderate inferior foraminal encroachment bilaterally. 4. At L5-S1 there is bilateral spondylolysis with a grade 2 spondylolisthesis. There is approximately 11-12 mm of anterior subluxation of the L5 vertebral body relative to S1. There is mild broad-based posterior disc bulging. The central spinal canal is well-preserved. There are posterolateral spurs. The combination of findings is causing moderate bilateral foraminal encroachment. 5. There is moderate aortoiliac calcific plaquing. There is a small infrarenal abdominal aortic aneurysm measuring approximately 3.3 cm in greatest AP dimension. Several sigmoid diverticula are also noted. IMPRESSION: 1. Bilateral spondylolysis at L5 with grade 2 spondylolisthesis and moderate bilateral foraminal encroachment at L5-S1. 2. Extensive facet joint arthropathy at L4-5 with moderate bilateral foraminal encroachment. 3. Moderate posterior disc bulging and posterior ligamentous thickening producing mild central spinal stenosis at L3-4, best demonstrated on the upright myelographic images.. 4. Incidental note is made of a small infrarenal abdominal aortic aneurysm. PQRS Compliance Statement: One or more of the following individualized dose reduction techniques were utilized for this examination: 1. Automated exposure control 2. Adjustment of the mA and/or kV according to patient size 3. Use of iterative reconstruction technique
== END | disposition home or self-care (01) ==
LOC: RAD 07:51
PROVIDERS: ATTEND Neurological Surgery
DX: M43.16 Spondylolisthesis, lumbar region (principal); M48.061 Spinal stenosis, lumbar region without neurogenic claudication; M79.604 Pain in right leg; I10 Essential (primary) hypertension; E11.9 Type 2 diabetes mellitus without complications; I50.9 Heart failure, unspecified; E78.00 Pure hypercholesterolemia, unspecified
CPT/HCPCS: 36415; 72132; 72265; 82565; 84520

== ENCOUNTER → 2017-02-01 | Outpatient (CLI) | payer OTHER ==
[2017-01-04 10:23] VITALS: BP 123/81
[~2017-02-01] MED LIST changes: -IOHEXOL 180 MG/ML 10 ML VIAL. IT ONE; -LIDOCAINE 1% / SOD BICARB 8.4% 20 ML VIAL. IJ ONE
--- NOTE | 2017-02-01 09:01 | RAD ---
Sonography of the abdominal aorta Clinical indications: Aneurysm seen on recent mammogram dated January 04, 2017. Findings: Duplex sonography of the abdominal aorta including rocha scale evaluation color-flow waveform spectral analysis was performed. Evaluation of the common iliac arteries and the remaining cava was performed as well. The AP and transverse dimensions of the proximal abdominal aorta are 1.7 cm and 2.5 cm respectively. The AP and transverse dimensions of the mid abdominal aorta are 1.9 cm and 2.6 cm respectively. The AP and transverse dimensions of the distal abdominal aorta are 2.9 cm and 2.4 cm respectively. There is a small focal aneurysmal dilatation of the distal abdominal aorta relative to the proximal and mid abdominal aorta. Color Doppler flow is seen within the lumen of the abdominal aorta and the peak systolic flow velocity measurement is 86 cm/sec. The caliber of the left common iliac artery is 1.4 cm and the right common iliac artery is 1.3 cm. The IVC is patent. IMPRESSION: Small infrarenal distal abdominal aortic aneurysm measuring 2.9 cm in greatest AP or transverse dimension.
== END | disposition home or self-care (01) ==
LOC: US 06:30
PROVIDERS: ATTEND Neurological Surgery
DX: I71.4 Abdominal aortic aneurysm, without rupture (principal)
CPT/HCPCS: 93978

== ENCOUNTER → 2017-02-09 | Outpatient (CLI) | payer OTHER ==
[2017-02-09 10:19] LABS: ADD MAN DIFF? NO
[2017-02-09 10:30] LABS: BASO % 0 % (0-3); EOS # 0.2 x10^3/uL (0.0-0.7); EOS % 3 % (0-3); HEMATOCRIT 45.1 % (39.0-53.0); HEMOGLOBIN 14.9 g/dL (13.0-17.5); LYMPH # 1.7 x10^3/uL (1.0-4.8); LYMPH % 22 % (24-48); MEAN CORPUSCULAR HEMOGLOBIN 31 pg (25-35); MEAN CORPUSCULAR HGB CONC 33 g/dL (31-37); MEAN CORPUSCULAR VOLUME 95 fL (79-100); MONO # 0.7 x10^3/uL (0.0-1.1); MONO % 9 % (0-9); NEUT # 5.2 x10^3uL (1.8-7.7); NEUT % 66 % (31-73); PLATELET COUNT 195 x10^3/uL (140-400); RED BLOOD COUNT 4.77 x10^6/uL (4.30-5.70); RED CELL DISTRIBUTION WIDTH 12.8 % (11.5-14.5); WHITE BLOOD COUNT 7.9 x10^3/uL (4.0-11.0)
[2017-02-09 10:40] LABS: INR 1.1 (0.8-1.1); PARTIAL THROMBOPLASTIN TIME 26 SEC (24-38); PROTHROMBIN TIME PATIENT 13.3 SEC (11.7-14.0)
[2017-02-09 10:48] LABS: ALBUMIN 3.9 g/dL (3.4-5.0); ALBUMIN/GLOBULIN RATIO 1.1 (1.0-1.7); ALK PHOS 49 U/L (46-116); ALT (SGPT) 39 U/L (16-63); ANION GAP 9 (6-14); AST (SGOT) 22 U/L (15-37); BLOOD UREA NITROGEN 18 mg/dL (8-26); BUN/CREATININE RATIO 18 (6-20); CALCIUM 9.2 mg/dL (8.5-10.1); CARBON DIOXIDE 29 mmol/L (21-32); CHLORIDE 102 mmol/L (98-107); GFR 72.8; GLUCOSE 138 mg/dL (70-99); POTASSIUM 4.2 mmol/L (3.5-5.1); SODIUM 140 mmol/L (136-145); TOTAL BILIRUBIN 0.6 mg/dL (0.2-1.0); TOTAL PROTEIN 7.4 g/dL (6.4-8.2)
[2017-02-09 19:12] LABS: MRSA BY PCR Negative (Negative)
[2017-02-10 23:10] LABS: HEMOGLOBIN A1C 6.5 % (4.8-5.6)
== END | disposition home or self-care (01) ==
LOC: SURGPAT 09:41
DX: Z01.818 Encounter for other preprocedural examination (principal); M51.16 Intervertebral disc disorders with radiculopathy, lumbar region; M47.896 Other spondylosis, lumbar region; M43.16 Spondylolisthesis, lumbar region
CPT/HCPCS: 36415; 80053; 83036; 85025; 85610; 85730; 87641; 93005

== ENCOUNTER → 2017-05-01 | Outpatient (CLI) | payer OTHER | END | disposition home or self-care (01) | LOC: KCIC 11:24 | DX: M51.37 Other intervertebral disc degeneration, lumbosacral region (principal); M48.07 Spinal stenosis, lumbosacral region; M47.816 Spondylosis without myelopathy or radiculopathy, lumbar region; I71.4 Abdominal aortic aneurysm, without rupture; Z98.1 Arthrodesis status | CPT/HCPCS: 72100 ==

== ENCOUNTER → 2017-06-02 | Outpatient (CLI) | payer OTHER | END | disposition home or self-care (01) | LOC: CT 08:00 | DX: M51.16 Intervertebral disc disorders with radiculopathy, lumbar region (principal); M43.16 Spondylolisthesis, lumbar region; M48.061 Spinal stenosis, lumbar region without neurogenic claudication; K57.30 Diverticulosis of large intestine without perforation or abscess without bleeding | CPT/HCPCS: 72131 ==

== ENCOUNTER → 2018-01-23 | Outpatient (CLI) | payer OTHER ==
[2017-02-17 11:00] VITALS: BP 112/72
[~2018-01-23] MED LIST changes: +LOSA-73 PO; +LOSA100T14 PO; -LOSA100T6 PO; -LOSA50TA6 PO; -METF-620 PO; +METF10007 PO; +METH-38 PO; +OXYC1TAB15 PO
--- NOTE | 2018-01-23 12:41 | KCIC ---
Abdominal aortic ultrasound History: Abdominal aortic aneurysm Comparison: 02/01/2017 Findings: Multiple grayscale and color sonographic images of the abdominal aorta are submitted. Proximal abdominal aorta was obscured by bowel gas. Inferior vena cava is obscured by bowel gas. Maximal mid abdominal aortic caliber is about 2.1 cm, distally about 3.4 cm versus previously 2.8 cm. Right common iliac artery measured 1.3 cm. Left common iliac artery measured 1.3 cm. Impression: 1. There is infrarenal distal abdominal aortic aneurysm up to 3.4 cm, previous caliber about 2.8 cm on 02/01/2017 exam. Proximal abdominal aorta could not be visualized on this exam due to bowel gas. Electronically signed by: Jean Paul Ramirez MD (01/23/2018 12:36 PM) [email or web address]
== END | disposition home or self-care (01) ==
LOC: KCIC US 07:55
PROVIDERS: ATTEND Family Medicine
DX: I71.4 Abdominal aortic aneurysm, without rupture (principal)
CPT/HCPCS: 76770

== ENCOUNTER → 2018-02-23 | Outpatient (CLI) | payer OTHER ==
[2017-02-17 11:00] VITALS: BP 112/72
--- NOTE | 2018-02-26 15:12 | RAD ---
Nuclear medicine 3 phase bone scan History: right hip pain lateral side and medial groin pain for 1 1/2 years, right hip replacement 4 years ago "never 100%" per pt. Comparison: AP pelvis and right upper graft, 4 days ago. Technique: Examination performed after intravenous administration of 25.1 mCi Technetium 99m MDP. Angiographic phase images, 6 seconds per frame, in the anterior and posterior projection of the hips performed. Immediate static anterior and posterior images of the hips performed. Anterior, posterior, right and left lateral static images performed on delay. Findings: Angiographic phase images are normal. The immediate static images are normal. There is moderate increased tracer uptake at the tip of the femoral stem of the right hip arthroplasty. Tracer uptake along the prosthesis is otherwise normal. There is greater than expected but homogeneous tracer uptake of the upper sacrum and medial iliac bones. No pathology is seen on radiographs. Normal uptake is seen on the lateral views in the anterior view. Finding is favored to be artifactual due to close proximity to the gamma camera with posterior imaging. IMPRESSION: Moderate increased tracer uptake at the tip of the femoral stem of the right hip arthroplasty. Finding is suggestive of loosening. Electronically signed by: Cristiano Morgan MD (02/23/2018 2:30 PM) [id number]
== END | disposition home or self-care (01) ==
LOC: NM 08:36
PROVIDERS: ATTEND Orthopaedic Surgery
DX: Z47.89 Encounter for other orthopedic aftercare (principal); M25.561 Pain in right knee; Z96.641 Presence of right artificial hip joint
CPT/HCPCS: 78315; 96374; A9503

== ENCOUNTER → 2018-06-15 | Outpatient (CLI) | payer OTHER ==
[2017-02-17 11:00] VITALS: BP 112/72
[~2018-06-15] MED LIST changes: +GADOBUTROL 10 MMOL/10 ML VIAL IV ONE
--- NOTE | 2018-06-15 17:39 | KCIC ---
MRI of the lumbar spine without and with contrast 06/15/2018 CLINICAL HISTORY: Low back pain which radiates down the right hip. TECHNIQUE: Unenhanced T1-weighted and T2-weighted sagittal and axial and inversion recovery sagittal images of the lumbar spine were obtained. After the intravenous administration of 9 cc of Gadavist, enhanced T1-weighted sagittal and axial images of the lumbar spine were obtained. FINDINGS: Comparison is made to a CT scan of the lumbar spine dated 06/02/2017. Minimal S-shaped curvature of the thoracolumbar spine is seen. Moderate anterolisthesis of L5 in relation S1 is noted. The patient is post posterolateral fusion using pedicle screws and stabilizing rods at L5-S1. Degenerative signal changes are seen involving the L2-3, L3-4, L4-5 and L5-S1 discs. Degenerative signal changes are seen within the marrow surrounding these discs. Loss of height at L5-S1 disc is noted. The conus medullaris is normal morphology, position, and signal characteristics. At the L1-2 and L2-3 disc spaces there are mild generalized disc bulges. Degenerative changes are seen involving the facet joints bilaterally. There is mild ligamentum flavum hypertrophy bilaterally. These findings do not result in significant central spinal canal or neural foraminal stenosis. At the L3-4 disc space there is a mild to moderate generalized disc bulge. This is eccentric to the left. Degenerative changes are seen involving the facet joints bilaterally. These findings do not result in significant central spinal canal stenosis. Mild bilateral neural foraminal stenosis is seen. At the L4-5 disc space there is a moderate generalized disc bulge. Patient appears to be post right hemilaminotomy. Degenerative changes are seen involving the facet joints, left greater than right. These findings do not result in significant central spinal canal stenosis. Mild to moderate bilateral neural foraminal stenosis is seen. At the L5-S1 disc space there is a mild generalized disc bulge. Degenerative changes are seen involving the facet joints bilaterally. These findings do not result in significant central spinal canal stenosis. Moderate to severe bilateral neural foraminal stenosis is seen. IMPRESSION: 1. Post surgical changes are seen as discussed above. 2. The changes of degenerative disc disease are seen involving the lumbar spine. These findings do not result in significant central spinal canal stenosis at any level. Mild bilateral neural foraminal stenosis is seen at L3-4. Mild to moderate bilateral neural foraminal stenosis is seen at L4-5. Moderate to severe bilateral neural foraminal stenosis is seen at L5-S1. Electronically signed by: Alirio Arceo MD (06/15/2018 5:37 PM) [email or web address]
== END | disposition home or self-care (01) ==
LOC: KCIC MRI 09:15
PROVIDERS: ATTEND Family Medicine
DX: M51.16 Intervertebral disc disorders with radiculopathy, lumbar region (principal); M47.817 Spondylosis without myelopathy or radiculopathy, lumbosacral region; M43.17 Spondylolisthesis, lumbosacral region; M47.26 Other spondylosis with radiculopathy, lumbar region; M48.07 Spinal stenosis, lumbosacral region; M89.38 Hypertrophy of bone, other site; M41.85 Other forms of scoliosis, thoracolumbar region
CPT/HCPCS: 72158; 82565; A9585

== ENCOUNTER → 2018-07-30 | Outpatient (CLI) | payer OTHER ==
[2017-02-17 11:00] VITALS: BP 112/72
[~2018-07-30] MED LIST changes: -GADOBUTROL 10 MMOL/10 ML VIAL IV ONE
--- NOTE | 2018-07-30 13:14 | RAD ---
EXAM: CT lumbar spine without IV contrast CLINICAL HISTORY: Back pain, pseudoarthrosis COMPARISON: None available. TECHNIQUE: Helical CT was performed through the lumbar spine. Axial, coronal and sagittal reformatted images were generated. PQRS compliance statement - One or more of the following individualized dose reduction techniques were utilized for this study: 1. Automated exposure control 2. Adjustment of the mA and/or kV according to patient size 3. Use of iterative reconstruction technique FINDINGS: There are 5 nonrib-bearing lumbar-type vertebral bodies. Mild straightening of the normal lumbar lordosis. Grade 1 anterolisthesis of L5 on S1 with posterior interpediculate fixation, with grossly intact hardware. The right L5 and S1 pedicle screws appear to extend through the inferior margin of the respective neural foramen with partial involvement of the superior endplate of the right L5 vertebral body by the right L5 screw. Bilateral L5 pars defects are seen. Otherwise no spondylolisthesis. Mild L3-4 and moderate to severe L5-S1 disc height loss. Anterior endplate osteophytes are seen at multiple levels. T12-L1: Generalized disc bulge with ligamentum flavum hypertrophy and facet degenerative changes results in mild central canal stenosis and mild bilateral neural foraminal narrowing. L1-L2: No significant central canal stenosis or neural foraminal narrowing. L2-L3: Diffuse generalized disc bulge with ligamentum flavum hypertrophy and facet degenerative changes results in mild central canal stenosis and mild bilateral neural foraminal narrowing. L3-L4: Diffuse circumferential disc bulge with ligamentum flavum hypertrophy, facet degenerative changes results in mild central canal stenosis, moderate to severe left and moderate right neural foraminal narrowing. L4-L5: Diffuse circumferential disc bulge and ligamentum flavum hypertrophy and facet degenerative changes results in mild central canal stenosis and moderate to severe bilateral neural foraminal narrowing. The right L5 pedicle screw appears to extend through the inferior right neural foramen. L5-S1: Anterolisthesis of L5 on S1 with associated endplate proliferative changes results in no significant central canal stenosis however there is moderate to severe bilateral neural foraminal narrowing. Borderline aneurysmal dilatation of the infrarenal abdominal aorta measuring up to 3 cm. Atherosclerotic calcifications of aorta are seen. Colonic diverticula are seen. IMPRESSION: 1. Changes of L5-S1 interpediculate fusion with grade 1 anterolisthesis of L5 on S1 and associated bilateral L5 pars defects. 2. Multilevel spondylosis as above. Electronically signed by: Paramjit Rodriguez MD (07/30/2018 1:12 PM) [facility]
== END | disposition home or self-care (01) ==
LOC: CT 10:25
PROVIDERS: ATTEND Neurological Surgery
DX: K57.30 Diverticulosis of large intestine without perforation or abscess without bleeding (principal); I70.0 Atherosclerosis of aorta; M47.817 Spondylosis without myelopathy or radiculopathy, lumbosacral region; M51.26 Other intervertebral disc displacement, lumbar region; M40.46 Postural lordosis, lumbar region; M48.07 Spinal stenosis, lumbosacral region; M25.78 Osteophyte, vertebrae
CPT/HCPCS: 72131

== ENCOUNTER → 2018-09-10 | Outpatient (CLI) | payer OTHER ==
[2017-02-17 11:00] VITALS: BP 112/72
--- NOTE | 2018-09-10 09:07 | PAIN ---
DATE OF SERVICE: 09/10/2018 PROGRESS NOTE FOR PAIN CLINIC DIAGNOSES: Lumbar radiculopathy with lumbar degenerative disk disease, lumbar spondylosis and post-lumbar laminectomy syndrome. HISTORY OF PRESENT ILLNESS: The patient is a 78-year-old male who returns for followup, last seen in 2016. The patient did well with some radiofrequency ablation in the medial branches, L4-L5 and L5-S1, also has facet joint injections. He did well from 85% improvement. The patient reports he has had a lumbar fusion now at L5-S1 with instrumentation and posterior fusion in 02/2017. The patient reports that his pain is better on the right leg with left leg still significantly painful in the lateral anterior thigh, lateral and anterior lower leg as well as in the right side of the low back. The patient reports it is constant, aching, sharp, dull type, worse with walking, standing, changing positions. After about 10-15 minutes of walking, he must stop and rest to decrease the pain. As it gets worse, he can only go about half a mile at the most. The patient reports it is an 8 on a scale of 10 at its worst over the past week, 7 on average, 3 on a scale of 10 at its least and is a 7 today. The patient reports no new motor or sensory deficits. Sleeping on his left side exacerbates the pain. It awakens him from sleep occasionally, but not most nights. The patient reports no new motor or sensory deficits, no new bowel or bladder incontinence or other complaints. PHYSICAL EXAMINATION: VITAL SIGNS: The patient's blood pressure is 139/82, pulse 73, respirations are 18, temperature 98.3 degrees Fahrenheit, height is 5 feet 11 inches, weight is 209 pounds. GENERAL: The patient is awake, alert, oriented, appropriate, very pleasant demeanor. HEENT: Shows normocephalic, atraumatic. Extraocular movements are intact and symmetrical. Oral cavity: Mucous membranes moist and pink. Dentition is intact. NECK: Shows anterior throat supple without palpable lymphadenopathy noted. Swallow reflex symmetrical. CHEST: Shows normal on inspection. Breath sounds are clear to auscultation bilaterally. HEART: Shows S1, S2 clear. No murmurs auscultated. ABDOMEN: Soft, obese, nontender, nondistended. No palpable organomegaly is noted. No rebound or guarding demonstrated. BACK: Shows spine grossly in the midline. Normal-appearing thoracic kyphosis and lumbar lordotic curvature is slightly flattened. Lumbar paraspinous muscle shows symmetrical on inspection with well-healed surgical scarring x 3. The patient's back shows good rotational motion of lumbar spine, both laterally as well as extension and flexion without significant difficulty or increase in pain. EXTREMITIES: Lower extremities show deep tendon reflexes 1+ in the patellar and tendo calcaneus tendons. Motor exam is strong with 5/5 dorsiflexion, extension, equal. Peripheral pulses are 1+ posterior tibia. No peripheral edema is noted bilaterally. Options were discussed with the patient. The patient's old chart was reviewed as his current medication regimen updated. Current review of systems updated today as well. We will preauthorize the patient for a lumbar epidural steroid injection. He has done very well with procedures in the past. He has a radiculopathy in the L4-L5 dermatomal distribution on the left leg and we will plan on the L4-L5 level, translaminar epidural injection once preauthorization is obtained. The patient will continue with walking and stretching to the best of his ability. He is doing his own therapy exercises at home as well and we will continue doing these as tolerated. The patient will return to clinic in approximately 1 week. We will plan on lumbar epidural steroid injection at that time. KATERIN RAMOS MD DR: ADAM/duke JOB#: [id number] / [id number]
== END | disposition home or self-care (01) ==
LOC: PNCL 07:49
PROVIDERS: ATTEND Anesthesiology
DX: M51.16 Intervertebral disc disorders with radiculopathy, lumbar region (principal); M47.26 Other spondylosis with radiculopathy, lumbar region; M96.1 Postlaminectomy syndrome, not elsewhere classified
CPT/HCPCS: G0463

== ENCOUNTER → 2018-10-01 | Outpatient (CLI) | payer OTHER ==
[2017-02-17 11:00] VITALS: BP 112/72
[~2018-10-01] MED LIST changes: +IOHEXOL 180 MG/ML 10 ML VIAL. ONE; +methylPREDNISolone ACETATE 40 MG/ML VIAL. ONE; +methylPREDNISolone ACETATE 80 MG/ML VIAL. ONE
--- NOTE | 2018-10-01 14:42 | PAIN ---
DATE OF SERVICE: 10/01/2018 PROGRESS NOTE FOR PAIN CLINIC DIAGNOSES: Lumbar radiculopathy with lumbar degenerative disk disease, lumbar spondylosis and post lumbar laminectomy syndrome. HISTORY OF PRESENT ILLNESS: The patient is a 78-year-old male who returns for followup status post lumbar epidural steroid injection as well as radiofrequency and facet joint injections in 2017. The patient still has significant pain in the low back radiating to the left lower extremity, also in the right low back and into the left leg. The patient reports it is worse with walking, standing, changing positions. He was waiting for preauthorization with insurance provider after last visit, which was 09/10 and has obtained that now and would like to proceed with lumbar epidural steroid injection as we discussed. We also discussed spinal cord stimulation and other options. The patient would like to start with a more conservative measure first and we will proceed with lumbar epidural steroid injection today. The patient reports the pain is at 8 on a scale of 10, worst in the past week, 5 on average, 2 at its least and is at 2 today. The patient reports it is aching, sharp, burning and more constant in the low back and especially left lower extremity. The patient reports no new motor or sensory deficits, no new bowel or bladder incontinence or other complaints. PHYSICAL EXAMINATION: VITAL SIGNS: The patient's blood pressure 134/75, pulse 74, respirations 18, temperature 98.3 degrees Fahrenheit, height is 5 feet 11 inches, weighs 209 pounds. GENERAL: The patient is awake, alert, oriented, appropriate, very pleasant demeanor. HEENT: Shows normocephalic, atraumatic. Extraocular movements are intact and symmetrical. The patient is wearing eyeglasses. Oral cavity: Mucous membranes moist and pink. Dentition is intact. NECK: Shows anterior throat supple without palpable lymphadenopathy noted. Swallow reflex is symmetrical. CHEST: Shows normal on inspection. Breath sounds are clear to auscultation bilaterally. HEART: Shows S1, S2 clear. No murmurs auscultated. ABDOMEN: Soft, nontender, nondistended. BACK: Shows spine grossly in the midline. Flattening of lumbar lordotic curvature as noted with multiple lumbar surgical scars, which are well healed. Lumbar paraspinous muscle shows symmetrical on inspection; with palpation, some moderate tenderness diffusely bilaterally going diffusely in the low lumbar distribution without radiation. The patient has good rotational motion of lumbar spine both laterally as well as extension and flexion with some minor tenderness with extension, but not with forward flexion. EXTREMITIES: Lower extremities show deep tendon reflexes at 1+ in the patellar and tendo calcaneus tendons. Motor exam is 5/5 with dorsiflexion, extension, quadriceps, and hamstring flexion and symmetrical. Peripheral pulses are 1+ posterior tibial. No peripheral edema is noted bilaterally. Options were discussed with the patient. The patient's old chart was reviewed as his current medication regimen updated. Current review of systems updated today as well. We will proceed with lumbar epidural steroid injection today with fluoroscopic guidance. Risks were again discussed including, but not limited to, bleeding, infection, possibility of epidural hematoma, subsequent neurologic compromise, dural puncture, headaches, spinal cord and/or nerve damage, side effects of steroid medication and poor results regarding pain control. The patient understands and wished to proceed. The patient will return to clinic in approximately 2 weeks for followup. He was counseled on return appointment, activity level and side effects to be aware of. DIAGNOSES: Lumbar radiculopathy with lumbar degenerative disk disease and lumbar spondylosis, post laminectomy syndrome. PROCEDURE: Lumbar epidural steroid injection, translaminar approach at the L4-L5 level using C-arm fluoroscopic guidance under sterile prep and drape using local anesthetic. MEDICATION INJECTED: A total of 120 mg Depo-Medrol plus 10 mL of preservative-free normal saline and 2 mL of contrast. CONDITION AT DISCHARGE: Stable. The patient tolerated the procedure well, had no complications. KATERIN RAMOS MD DR: ADAM/duke JOB#: [id number] / [id number]
== END ==
LOC: PNCL 07:45
PROVIDERS: ATTEND Anesthesiology
DX: M51.16 Intervertebral disc disorders with radiculopathy, lumbar region (principal); M47.816 Spondylosis without myelopathy or radiculopathy, lumbar region; M96.1 Postlaminectomy syndrome, not elsewhere classified
CPT/HCPCS: 62323; J1030; J1040; Q9965

== ENCOUNTER → 2018-10-15 | Outpatient (CLI) | payer OTHER ==
[2017-02-17 11:00] VITALS: BP 112/72
[~2018-10-15] MED LIST changes: -IOHEXOL 180 MG/ML 10 ML VIAL. ONE; -methylPREDNISolone ACETATE 40 MG/ML VIAL. ONE; -methylPREDNISolone ACETATE 80 MG/ML VIAL. ONE
--- NOTE | 2018-10-16 01:38 | PAIN ---
DATE OF SERVICE: 10/15/2018 PROGRESS NOTE FOR PAIN CLINIC DIAGNOSES: Lumbar radiculopathy with lumbar degenerative disk disease and lumbar spondylosis and post-lumbar laminectomy syndrome. HISTORY OF PRESENT ILLNESS: The patient is a 78-year-old male who returns for followup status post lumbar epidural steroid injection. The patient has also had facet joint injections, radiofrequency ablation in the past, previous lumbar epidural steroid injection. The patient reports no significant change or improvement with the last injection. The patient has seen his neurosurgeon who is recommending no further surgery at this time and is requesting a trial for spinal cord stimulator. The patient reports that his pain is 7 on a scale of 10 at its worst in the past week, 5 on average and 3 at its least and is a 7 today. The patient reports it is aching type, tingling, burning, constant in the low back radiating to left lower extremity, posterior lateral thigh, lateral anterior thigh, medial lower leg and ankle on the left side as well. The patient reports it is aching and tight in the ankle itself and a constant pain in the back and leg in a radicular fashion. The patient reports no new motor or sensory deficits, no new bowel or bladder incontinence or other complaints, but still significant pain with walking, standing, changing positions, essentially all motion and weightbearing with the left lower extremity. The patient reports no new motor or sensory deficits; however, no new bowel or bladder incontinence. PHYSICAL EXAMINATION: VITAL SIGNS: The patient's blood pressure is 135/79, pulse 77, respirations 18, temperature 98.2 degrees Fahrenheit, height is 5 feet 11 inches and weight is 205 pounds. GENERAL: The patient is awake, alert, oriented, appropriate, very pleasant demeanor. HEENT: Shows normocephalic, atraumatic. Extraocular movements are intact and symmetrical. Oral cavity, mucous membranes are moist and pink. Dentition is intact. NECK: Shows anterior throat supple without palpable lymphadenopathy noted. Swallow reflex symmetrical. CHEST: Shows normal on inspection. Breath sounds clear to auscultation bilaterally. HEART: Shows S1, S2 clear. No murmurs auscultated. ABDOMEN: Soft, nontender, nondistended. No palpable organomegaly is noted. No rebound or guarding demonstrated. BACK: Shows spine grossly in the midline. Flattening lumbar lordotic curvature is noted with well-healed surgical scarring with some moderate tenderness diffusely, more on the right than the left, but without radiating pain with palpation. No atrophy or hypertrophy. The patient has good rotational motion with some limited extension and limited forward flexion secondary to mechanical limitation not secondary to pain, but good lateral rotation greater than 10 degrees right and left. The patient's lower extremities show deep tendon reflexes 1+ in the patellar and tendo calcaneus tendons. Motor exam is 5/5 with dorsiflexion, extension, quadriceps and hamstring flexion. The patient's left ankle shows significant tenderness in the medial aspect of the malleolus with some moderate swelling on appearance compared to the right ankle as well. The patient's standing shows significant limp favoring the left lower extremity, not using any assistive devices. ASSESSMENT AND PLAN: Options were discussed with the patient. The patient's old chart was reviewed as his current medication regimen updated. Current review of systems updated today as well. We will refer the patient back for orthopedic evaluation of the left ankle. Also, preauthorize the patient for a spinal cord stimulator trial as the patient has had a significant previous lumbar surgery with fusion and instrumentation, has had epidural steroid injections as well as radiofrequency ablation, facet joint injections, all with very limited improvement, recent visit with the patient's neurosurgeon requesting no further surgeries and a spinal cord stimulator trial. We will make the arrangements, psychological evaluation pending as well. The patient will follow up for a stimulator trial. In the meantime, we will again have Orthopedics evaluation for left ankle pain with history of previous fracture and surgery for the left ankle in the past as well. KATERIN RAMOS MD DR: ADAM/duke JOB#: [id number] / [id number]
== END | disposition home or self-care (01) ==
LOC: PNCL 07:41
PROVIDERS: ATTEND Anesthesiology
DX: M51.16 Intervertebral disc disorders with radiculopathy, lumbar region (principal); M47.26 Other spondylosis with radiculopathy, lumbar region; M96.1 Postlaminectomy syndrome, not elsewhere classified; M25.572 Pain in left ankle and joints of left foot
CPT/HCPCS: G0463

== ENCOUNTER → 2018-11-28 | Outpatient (CLI) | payer OTHER ==
[2017-02-17 11:00] VITALS: BP 112/72
[~2018-11-28] MED LIST changes: +LIDOCAINE 1% PF 2 ML VIAL. ONE
--- NOTE | 2018-11-28 18:48 | PAIN ---
DATE OF SERVICE: 11/28/2018 PROGRESS NOTE FOR PAIN CLINIC DIAGNOSES: Lumbar radiculopathy with lumbar degenerative disk disease and lumbar spondylosis and post-lumbar laminectomy syndrome. HISTORY OF PRESENT ILLNESS: The patient is a 78-year-old male who returns for followup status post preauthorization and clearance for a spinal cord stimulator temporary leads placement. The patient has had psychological evaluation and was placed in a good category for interventional spine procedures and implantable devices. The patient would like to proceed, reports still significant pain in the low back, bilateral lower extremities, somewhat worse on the right than the left, but also in the lower extremities and left as well as the right. The patient reports it is 7 on a scale of 10 at its worst over the past week, 5 on average, 2 at its least and is a 5 today. Reports it is aching, sharp, tight, radiating in the lower extremities as noted, worse with activity, standing, walking, changing positions, better with lying down or sitting, does not generally awaken him from sleep at night. The patient reports no new motor or sensory deficits, no new bowel or bladder incontinence or other complaints. PHYSICAL EXAMINATION: VITAL SIGNS: The patient's blood pressure 136/85, pulse 73, respirations are 16, temperature 98.2 degrees Fahrenheit, height is 5 feet 11 inches and weight is 203 pounds. GENERAL: The patient is awake, alert, oriented, appropriate, very pleasant demeanor. HEENT: Head shows normocephalic, atraumatic. Extraocular movements are intact and symmetrical. Oral cavity: Mucous membranes moist and pink. Dentition is intact. NECK: Shows anterior throat supple without palpable lymphadenopathy noted. Swallow reflex symmetrical. CHEST: Shows normal on inspection. Breath sounds are clear to auscultation bilaterally. HEART: Shows S1, S2 clear. No murmurs auscultated. ABDOMEN: Soft, nontender, nondistended. No palpable organomegaly is noted. No rebound or guarding demonstrated. BACK: Shows spine grossly in the midline. Normal appearing thoracic kyphosis. Some significant flattening of lumbar lordotic curvature with well-healed surgical scarring noted as previously identified. The patient's lumbar paraspinous muscle shows symmetrical on inspection, on palpation shows some moderate tenderness diffusely, but only diffusely bilaterally without significant radiation. EXTREMITIES: The patient's lower extremities show deep tendon reflexes at 1+ in the patellar and tendo calcaneus tendons. Motor exam is strong with 5/5 dorsiflexion, extension, quadriceps and hamstring flexion and symmetrical. Peripheral pulses are 1+ posterior tibia. No peripheral edema is noted bilaterally. Options were discussed with the patient. The patient's old chart was reviewed as his current medication regimen updated. Current review of systems updated today as well. We will proceed with a spinal cord stimulator, dual lead temporary placement under fluoroscopic guidance. Risks were again discussed including, but not limited to bleeding, infection, possibility of epidural hematoma, subsequent neurological compromise, dural puncture, headaches, spinal cord and/or nerve damage as well as poor results regarding pain control. The patient understands and wished to proceed. The patient will return to the clinic in approximately 1 week for followup and removal of spinal cord stimulator leads and reassessment of the patient's progress at that time. DIAGNOSES: Lumbar post-laminectomy syndrome with lumbar spondylosis, degenerative disk disease and lumbar radiculopathy. PROCEDURE: Spinal cord stimulator temporary lead placement x 2. Under sterile prep and drape using local anesthetic, using C-arm fluoroscopic guidance, using local anesthetic for placement, a 14-gauge Xradiatead needle with curved tip with stylets were used to introduce the epidural space at the L3-L4 level using preservative-free normal saline loss of resistance technique under direct fluoroscopic vision using AP and lateral views to confirm midline and posterior placement, negative aspiration was obtained at each level with a spinal cord stimulator wires then threaded under direct fluoroscopic vision midline and superiorly into the epidural space to rest the first wire of midline at the superior endplate of the distal tip at the T8 vertebral level and the second-degree midline and posterior at the superior endplate of the T9 vertebral level. Again, confirmation with lateral views showing posterior placement of the spinal cord stimulator leads in the epidural space. [place] were withdrawn. Stylets were removed. Suture was used with local anesthetic to secure the spinal cord stimulator leads x 2. Sterile bandages were applied. Condition at discharge was stable. The patient tolerated the procedure well, had no Complications, left on his own power for followup in 1 week. KATERIN RAMOS MD DR: ADAM/duke JOB#: [id number] / [id number]
== END ==
LOC: PNCL 12:39
PROVIDERS: ATTEND Anesthesiology
DX: M51.16 Intervertebral disc disorders with radiculopathy, lumbar region (principal); M96.1 Postlaminectomy syndrome, not elsewhere classified; M47.816 Spondylosis without myelopathy or radiculopathy, lumbar region
CPT/HCPCS: 63650; C1897

== ENCOUNTER → 2018-12-05 | Outpatient (CLI) | payer OTHER ==
[2017-02-17 11:00] VITALS: BP 112/72
[~2018-12-05] MED LIST changes: -LIDOCAINE 1% PF 2 ML VIAL. ONE
--- NOTE | 2018-12-05 16:26 | PAIN ---
DATE OF SERVICE: 12/05/2018 PROGRESS NOTE FOR PAIN CLINIC DIAGNOSES: Lumbar radiculopathy with lumbar degenerative disk disease, lumbar spondylosis and post-lumbar laminectomy syndrome. HISTORY OF PRESENT ILLNESS: The patient is a 78-year-old male who returns for followup status post spinal cord stimulator placement temporary leads x 2 one week ago. The patient returns today reporting only very minimal decrease in pain. He worked closely with Narendra Borrero, our [facility] roofing sales representative with 4 different programs tried over the past week without significant long-term improvement. The patient reports still significant pain in the low back, right leg as well as the left leg as it was previously. The patient reports over the right groin, which he feels some of the pain has actually gotten worse with the stimulation. The patient reports it is aching, dull, tingling, becoming more constant. We offered a low frequency stimulation as well, but the patient reports he would like to have the leads removed as he feels he is given enough of a try. The patient reports his pain is 8 on a scale of 10 at its worst over the past week, 5 on average, 2 at its least and is a 5 today. The patient reports no new motor or sensory deficits, no new bowel or bladder incontinence, better with sleeping, lying down, but does not bother him with those to begin with. No new motor or sensory changes or other complaints. PHYSICAL EXAMINATION: VITAL SIGNS: The patient's blood pressure 120/80, pulse 88, respirations 18, temperature 98.1 degrees Fahrenheit, height is 5 feet 11 inches, weight is 207 pounds. GENERAL: The patient is awake, alert, oriented, appropriate, very pleasant demeanor. HEENT: Head shows normocephalic, atraumatic. Extraocular movements are intact and symmetrical. Oral cavity: Mucous membranes moist and pink. Dentition is intact. NECK: Shows anterior throat supple without palpable lymphadenopathy noted. Swallow reflex symmetrical. CHEST: Shows normal on inspection. Breath sounds are clear bilaterally. HEART: Shows S1, S2 clear. No murmurs auscultated. ABDOMEN: Soft, nontender, nondistended. BACK: Shows spine grossly in the midline. Bandages were taken down under sterile prep and drape, the sutures were removed and the leads were removed x 2. Sites clean and dry, no erythema, no discharge, no tenderness with palpation. The patient has full rotational motion of lumbar spine, both laterally as well as extension and flexion without difficulty. EXTREMITIES: Lower extremities show deep tendon reflexes 1+ in the patellar and tendo calcaneus tendons. Motor exam is strong with 5/5 dorsiflexion, extension and equal bilaterally. Options were discussed with the patient. We will have the patient follow up at this time on as needed basis. We will try Flector patch. The patient has done well with these in the past with his ankle pain and would like to try this for his back as well. He was given samples of the Flector patch for a trial. The patient at this time is not interested in pursuing any permanent spinal cord stimulator placement. KATERIN RAMOS MD DR: ADAM/duke JOB#: [id number] / [id number]
== END | disposition home or self-care (01) ==
LOC: PNCL 10:58
PROVIDERS: ATTEND Anesthesiology
DX: M51.16 Intervertebral disc disorders with radiculopathy, lumbar region (principal); M47.26 Other spondylosis with radiculopathy, lumbar region; M96.1 Postlaminectomy syndrome, not elsewhere classified
CPT/HCPCS: G0463

== ENCOUNTER → 2019-01-07 | Outpatient (CLI) | payer OTHER ==
[2017-02-17 11:00] VITALS: BP 112/72
--- NOTE | 2019-01-07 09:16 | KCIC ---
EXAM: Abdomen aortic sonogram. HISTORY: Aneurysm. TECHNIQUE: Sonographic imaging of the abdominal aorta was performed.. COMPARISON: Lumbar spine CT dated 07/30/2018 and aortic sonogram dated 01/23/2018. FINDINGS: The proximal abdominal aorta is obscured due to bowel gas. The mid abdominal aorta measures 2.0 cm in caliber. The distal abdominal aorta measures 3.5 cm in caliber. The common iliac arteries are normal in caliber. IMPRESSION: Distal abdominal aortic aneurysm measuring 3.5 cm. This is very similar compared to a measurement of 3.4 cm on the prior sonogram dated 01/23/2018. Electronically signed by: Esther Manriuqe MD (01/07/2019 9:13 AM) [place] [id number]
== END ==
LOC: KCIC US 07:46
PROVIDERS: ATTEND Family Medicine
DX: I71.4 Abdominal aortic aneurysm, without rupture (principal); I11.0 Hypertensive heart disease with heart failure; I50.9 Heart failure, unspecified; E78.00 Pure hypercholesterolemia, unspecified; E11.9 Type 2 diabetes mellitus without complications; M19.90 Unspecified osteoarthritis, unspecified site; Z87.891 Personal history of nicotine dependence
CPT/HCPCS: 76770